=== PATIENT | female | born 1970 | race American Indian/Alaskan Native ===

== ENCOUNTER 2022-05-05 05:22 | Emergency (ER) | payer SELFPAY ==
[2022-05-05] MEDS ORDERED: MORPHINE 2 MG/1 ML INJ IV ONE (08:02)
[2022-05-05] MEDS ORDERED: SODIUM CHLORIDE 0.9% 1000 ML 1,000 ML IV ONE (08:03)
[2022-05-05] MEDS ORDERED: ALUM-MAG HYDROXIDE-SIMETHICONE 200-200-20MG/5ML ORAL LIQD 30 ML PO ONE (08:21)
[2022-05-05] MEDS ORDERED: LIDOCAINE VISCOUS 2% 15 ML ORAL LIQD PO ONE (08:22)
--- NOTE | 2022-05-05 08:27 | Emergency Department Report ---
ED Chest Pain HPI - General Chief Complaint: Chest Pain Stated Complaint: CHEST PAIN Time Seen by Provider: 05/05/22 07:36 Source: patient Mode of arrival: Stretcher Limitations: No Limitations - History of Present Illness Initial Comments: 52-year-old female with diagnosis of gastritis 2 weeks ago who then went home and voluntarily placed several on healthy diet without fried food only to start having symptoms 4 days ago when she tried to eat just 1 piece of chicken that was fries. Patient also reports nausea and vomiting for the first 2 days. Jese alofrd however denies any fever or chills. Patient also mention chest wall pain with dry cough that started 2 days ago worsened with deep breath. Patient denies any other modifying or associated factors. Severity scale (0 -10): 8 - Related Data Previous Rx's Medication Instructions Recorded Last Taken Type Vit-Fe Fumar-FA [ 1 tab PO QDAY 120 Days #120 tablet 05/05/22 Unknown Rx Vitamin] NS Allergies Allergy/AdvReac Type Severity Reaction Status Date / Time No Known Allergies Allergy Unverified 05/05/22 07:09 Heart Score - HEART Score History: Slightly suspicious EKG: Normal Age: 45-65 Risk factors: No known risk factors Troponin: < normal limit HEART Score: 1 - EKG Read Time Time EKG Completed: 06:25 EKG Read Time: 07:00 - Critical Actions Critical Actions: 0-3 pts:0.9-1.7%risk of adverse cardiac event.Candidate for discharge ED Review of Systems ROS: Stated complaint: CHEST PAIN Other details as noted in HPI Comment: All other systems reviewed and negative Cardiovascular: other (Chest wall) Gastrointestinal: abdominal pain, nausea, vomiting ED Past Medical Hx - Past Medical History Previous Medical History?: Yes Hx Hypertension: Yes Additional medical history: Gastritis. PUD - Surgical History Past Surgical History?: No - Social History Smoking Status: Never Smoker Substance Use Type: None - Medications Home Medications: Home Medications Medication Instructions Recorded Confirmed Last Taken Type Vit-Fe Fumar-FA [ 1 tab PO QDAY 120 Days #120 tablet 05/05/22 Unknown Rx Vitamin] NS ED Physical Exam - General Limitations: No Limitations General appearance: alert, in no apparent distress - Eye Eye exam: Present: normal appearance Pupils: Present: normal accommodation - ENT ENT exam: Present: normal exam, normal orophraynx, mucous membranes dry - Neck Neck exam: Present: normal inspection. Absent: tenderness - Respiratory Respiratory exam: Present: normal lung sounds bilaterally, chest wall tenderness. Absent: respiratory distress, accessory muscle use - Cardiovascular Cardiovascular Exam: Present: normal rhythm, tachycardia, normal heart sounds - GI/Abdominal GI/Abdominal exam: Present: soft, tenderness (Epigastric), normal bowel sounds. Absent: distended - Extremities Exam Extremities exam: Present: normal inspection. Absent: tenderness - Back Exam Back exam: Present: normal inspection. Absent: tenderness - Neurological Exam Neurological exam: Present: alert, oriented X3 - Psychiatric Psychiatric exam: Present: normal affect, normal mood - Skin Skin exam: Present: warm, normal color ED Course Vital Signs 05/05/22 05/05/22 05/05/22 05:22 08:00 10:01 Temperature 98.4 F Pulse Rate 113 H 116 H 102 H Respiratory 16 22 22 Rate Blood Pressure 124/76 98/76 Blood Pressure 115/82 [Right] O2 Sat by Pulse 99 97 98 Oximetry 05/05/22 05/05/22 11:01 12:01 Temperature Pulse Rate 102 H 103 H Respiratory 16 17 Rate Blood Pressure 96/70 105/74 Blood Pressure [Right] O2 Sat by Pulse 98 97 Oximetry - Reevaluation(s) Reevaluation #1: 05/05/22 08:28 here with likely exacerbation of gastritis --- given GI cocktail and zofran for symptomatic relief + ivf ns 1L bolus x 1-- will also get CXR considering cough and CT abdomen to rule out pancreatitis -- Reevaluation #2: 05/05/22 12:33 Pt noted with positive urine hcg -- so will go ahead and order serum hCG -- for level and possible need for US-- pt reports no menses for the last 5 years and had 3 grown men-- even though she was looking forward to having a girl if possible but also reports bilateral tuber ligation in 1993-- so will follow up on the serum quantities to be sure this is not false possible-- Reevaluation #3: 05/05/22 13:29 Noted with slightly elevated BUN/Cr-- 34/1.3 which likely as a result of de hydration considering nausea and vomiting ----pt hydrated with ivf ns 1L bolus -- patient able to tolerate ice ships without vomiting -- Serum hCG quantitative noted with 8.[address] this gestation at around 3-4 weeks -- so will have patient follow up with [facility] in the next 48 hours for a repeat which needs to be double for viability-- KEN score - Ken Score Age > 65: (0) No Aspirin use within the Past 7 Days: (0) No 3 or more CAD Risk Factors: (0) No 2 or more Angina events in past 24 hrs: (0) No Known CAD with more than 50% Stenosis: (0) No Elevated Cardiac Markers: (0) No ST Deviation Greater than 0.5mm: (0) No KEN Score: 0 ED Medical Decision Making - Lab Data Result diagrams: 05/05/22 08:31 05/05/22 08:31 - EKG Data -: EKG Interpreted by Me EKG shows normal: sinus rhythm Rate: tachycardia - EKG Data 05/05/22 08:30 Noted with sinus tachycardia at the rate of 115 bpm, with possible left atrial enlargement with no ST depression or elevation in this abnormal ECG - Medical Decision Making Here with chest pain/pressure--differential could be but not limited to myocardial infarction, pulmonary embolism, costochondritis, anxiety, gastritis, GERD, pancreatitis, and or pyelonephritis--in order to rule out the above-- so w ill go ahead and order routine cardiopulmonary work-up that include troponin, EKG, chest x-ray, BNP, CKMB, and CBC, CMP and urinalysis for any correctable infectious process or electrolyte abnormality as a cause. This is likely costochondritis considering recent cough--and the abdominal pain with appreciable epigastric tenderness is likely as a result of gastritis-- Critical care attestation.: If time is entered above; I have spent that time in minutes in the direct care of this critically ill patient, excluding procedure time. ED Disposition Clinical Impression: Chest wall pain Gastritis Qualifiers: Gastritis type: unspecified gastritis Chronicity: unspecified Gastritis bleeding: presence of bleeding unspecified Qualified Code(s): K29.70 - Gastritis, unspecified, without bleeding Abdominal pain Qualifiers: Abdominal location: epigastric Qualified Code(s): R10.13 - Epigastric pain Qualifiers: Weeks of gestation: unspecified Qualified Code(s): Z34.90 - Encounter for supervision of normal , unspecified, unspecified trimester Disposition: 01 HOME / SELF CARE / HOMELESS Is pt being admited?: No Does the pt Need Aspirin: No Condition: Stable Instructions: Nonspecific Chest Pain, Adult, How a Baby Grows During , Eating Plan for Women, First Trimester of , [id number], Abdominal Pain During , Preventing Low and Very Low Weight, Heartburn During , [id number] Additional Instructions: It is very important that you call and follow-up with your primary doctor or my [facility] in the next 1 to 2 days to have your serum hCG blood test in 48 hours to be able to compare to the numbers obtained today for viability. It small male at the time every 4-6 hours for possible 3-4 times a day to prevent nausea and vomiting Call or return to emergency room if your symptoms worsen Follow the above printed instruction closely to continue to help your symptoms Drink plenty of fluids to help your overall health It is important for you to start your vitamin immediately to prevent complication such as neural tube defect Prescriptions: Vit-Fe Fumar-FA [ Vitamin] 1 tab PO QDAY 120 Days #120 tablet NS Referrals: CHAD CRAWFORD MD [Primary Care Provider] - 3-5 Days Time of Disposition: 13:36
[2022-05-05 08:58] LABS: Basophils # (Auto) 0.1 K/mm3 (0.0-0.1); Basophils % (Auto) 0.8 % (0.0-1.8); Eosinophils % (Auto) 0.4 % (0.0-4.3); Hematocrit 48.4 % (30.3-42.9); Hemoglobin 16.7 gm/dl (10.1-14.3); Lymphocytes # (Auto) 2.8 K/mm3 (1.2-5.4); Lymphocytes % (Auto) 27.5 % (13.4-35.0); Mean Corpuscular HGB Conc 35 % (30-34); Mean Corpuscular Volume 91 fl (79-97); Monocytes # (Auto) 0.8 K/mm3 (0.0-0.8); Monocytes % (Auto) 7.7 % (0.0-7.3); Platelet Count 223 K/mm3 (140-440); Red Blood Count 5.31 M/mm3 (3.65-5.03); Red Cell Distribution Width 13.5 % (13.2-15.2)
[2022-05-05 09:11] LABS: INR 0.94 (0.87-1.13); Partial Thromboplastin Time 26.1 Sec. (24.2-36.6)
[2022-05-05 09:50] LABS: Albumin 4.7 g/dL (3.9-5); Calcium 10.5 mg/dL (8.4-10.2)
[2022-05-05 10:44] LABS: Bilirubin,Urine NEG (Negative); Blood,Urine NEG (Negative); Color,Urine Amber (Yellow); Urobilinogen,Urine < 2.0 mg/dL (<2.0)
[2022-05-05 10:48] LABS: Bacteria,Urine 1+ /HPF (Negative); Hyaline Casts,Urine 2 /LPF; Mucus,Urine 3+ /HPF
[2022-05-05 10:55] LABS: HCG Qualitative,Urine Positive (Negative)
[2022-05-05 12:46] VITALS: BP 105/74
--- NOTE | 2022-05-05 15:21 | Electrocardiograph Report ---
[facility] Test Date: 2022-05-05 Test Time: 06:25:26 Pat Name: BYRON PABLO Department: Room: Gender: F Legal Transcriber: : 1970 Requested By: GARETT DIALLO Order Number: [id number] Reading MD: Ana Stringer Measurements Intervals [place] Rate: 115 P: 78 ND: 137 QRS: 12 QRSD: 66 T: 55 QT: 329 QTc: 454 Interpretive Statements Sinus tachycardia Probable left atrial enlargement No previous ECG available for comparison Electronically Signed On 05-05-2022 15:21:07 EDT by Ana Stringer
== END 2022-05-05 14:43 | disposition home or self-care (01) ==
LOC: ED 05:22
DX: O26.899 Other specified pregnancy related conditions, unspecified trimester (principal); K29.70 Gastritis, unspecified, without bleeding; R10.13 Epigastric pain; R07.89 Other chest pain; Z3A.00 Weeks of gestation of pregnancy not specified
CPT/HCPCS: 36415; 80053; 81001; 81025; 82140; 83690; 84702; 85025; 85610; 85730; 87086; 93005; 96361; 96374; 99284; J2270; J7030